=== PATIENT | male | born 1970 | race African-American/Black ===

== ENCOUNTER 2017-01-22 07:46 | Day surgery (SDC) | payer BC ==
[~2017-01-22 07:46] MED LIST: ACETAMINOPHEN 1,000 MG/100 ML BTL IV ONE
--- NOTE | 2017-01-22 13:10 | Operative Note ---
DATE OF SURGERY: 01/22/2017 Surgeon: Rick Harrell DO PREOPERATIVE DIAGNOSIS: Torn medial meniscus of the right knee. POSTOPERATIVE DIAGNOSES: 1. Torn medial meniscus of the right knee. 2. 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 OPERATION: 1. Arthroscopic partial medial meniscectomy, right knee. 2. Arthroscopic chondroplasty of the trochlea and medial femoral condyle, right knee. DESCRIPTION OF PROCEDURE: This 46-year-old male was taken to the operating room and placed in the supine position on the operating room table. A general anesthetic was administered and the right lower extremity was elevated. It was exsanguinated and the tourniquet inflated to 300 mmHg. Arthroscopic knee crespo applied. Right knee prepped with Hibiclens and draped in the usual sterile fashion. An inferolateral portal was established for the 4 mm arthroscope and initial evaluation of the joint demonstrated normal appearance of the suprapatellar pouch. The patella itself appeared to be normal; however, significant degenerative change of the trochlea was evident. Probing in this area revealed gross instability of the center of the trochlea and a lesion of about 1.5 to 2 cm in greatest dimension. This was a severe grade 3 lesion and utilizing the rotating shaver, we removed loose fragmented flaps of articular cartilage. It was probed, however, and found to be stable. The medial compartment was entered and a complex horizontal cleavage tear of the posterior horn of the medial meniscus was present. This tear extended from approximately the 11-o'clock position around to the 1:30 position with the apex being at about the 12:30 position. Utilizing the basket forceps and rotating shaver, we resected back to the apex of the tear and then tapered in each direction to restore stability. It was probed and confirmed to be stable. The remainder of the meniscus appeared nl. The patient did have loose flaps of articular cartilage at the lateral edge of the medial femoral condyle at the upswing to the tibial spine, and these flaps were resected to stabilize the articular cartilage on the medial femoral condyle. The intracondylar notch was examined and found to be normal. The lateral compartment was entered and the articular cartilage of the lateral compartment was normal as was the meniscus but multiple cartilaginous loose joint bodies were seen floating within the joint, and these were evacuated. The joint was then copiously irrigated and suctioned. All the areas reexamined. No additional findings were present. The joint was suctioned. The instruments were removed. The portals infiltrated with 0.25% Marcaine with epinephrine. Sterile dressings applied. The patient taken to the recovery room in satisfactory condition. GROSS PATHOLOGY: Grade 3 chondromalacia of the patella and early grade 2 chondromalacia of the medial femoral condyle was present as described above. In addition, a complex horizontal cleavage tear of the posterior horn of the medial meniscus was present. MTDD
[2017-01-22] MEDS ORDERED: METOCLOPRAMIDE 10 MG TABLET PO ONE (13:38)
[2017-01-22] MEDS ORDERED: MECLIZINE 25 MG TABLET PO ONE (13:38)
[2017-01-22] MEDS ORDERED: FAMOTIDINE 20MG TABLET PO ONE (13:38)
[2017-01-22] MEDS ORDERED: HYDROCODONE/APAP 7.5/325MG TABLET PO ONE (13:38)
[2017-01-22] MEDS ORDERED: BUPIVACAINE 0.25% W/EPI MPF 30ML VIAL IVP ONE (15:30)
[2017-01-22] MEDS ORDERED: LIDOCAINE 2% MDV (20MG/ML) 20ML VIAL IV ONE (15:36)
[2017-01-22] MEDS ORDERED: KETOROLAC 30 MG/ML VIAL IVP ONE (15:36)
[2017-01-22] MEDS ORDERED: MIDAZOLAM HCL 2MG/2ML VIAL IV ONE (15:36)
[2017-01-22] MEDS ORDERED: PROPOFOL 10 MG/ML VIAL IV ONE (15:36)
[2017-01-22] MEDS ORDERED: SEVOFLURANE 250 ML INH ONE (15:36)
== END 2017-01-22 10:45 | disposition home or self-care (01) ==
LOC: SUR 07:46
PROVIDERS: ATTEND Orthopaedic Surgery
DX: S83.241A Other tear of medial meniscus, current injury, right knee, initial encounter (principal); M94.261 Chondromalacia, right knee
CPT/HCPCS: 29881; 01400; J1885

== ENCOUNTER 2017-04-08 07:30 | Day surgery (SDC) | payer BC ==
[~2017-04-08 07:30] MED LIST changes: +CEFAZOLIN 2 Gram 2 GM/50 ML BAG IVPB ONE
[2017-04-08] MEDS ORDERED: HYDROMORPHONE HCL 2 MG/ML VIAL IV ONE ×2 (07:31)
[2017-04-08] MEDS ORDERED: SCOPOLAMINE 1 PATCH TDSY TD ONE (07:31)
[2017-04-08] MEDS ORDERED: ONDANSETRON HCL IV 4 MG/2 ML VIAL IVP ONE ×2 (07:31)
[2017-04-08] MEDS ORDERED: KETOROLAC 30 MG/ML VIAL IVP ONE (07:31)
[2017-04-08] MEDS ORDERED: ONDANSETRON 4 MG ODT TABLET SL ONE (07:31)
[2017-04-08] MEDS ORDERED: LIDOCAINE 2% MDV (20MG/ML) 20ML VIAL IV ONE (07:31)
[2017-04-08] MEDS ORDERED: LABETALOL HCL 5MG/ML, 20ML VIAL IVPB ONE (07:31)
[2017-04-08] MEDS ORDERED: PROPOFOL 10 MG/ML VIAL IV ONE (07:31)
[2017-04-08] MEDS ORDERED: SEVOFLURANE 250 ML INH ONE (07:31)
[2017-04-08 07:44] LABS: BASO % 0.5 % (0-6); EOS % 1.3 % (0-6); HEMATOCRIT 44.6 % (42.0-52.0); HEMOGLOBIN 15.1 gm/dl (14.0-18.0); LYMPH % 28.6 % (16-45); MEAN CORPUSCULAR HEMOGLOBIN 30.1 pg (27-33); MEAN CORPUSCULAR HGB CONC 33.9 g/dl (32-36); MEAN PLATELET VOLUME 8.7 fl (7.4-10.4); MONO % 9.6 % (0-9); PLATELET COUNT 221 K/uL (130-400); RED BLOOD COUNT 5.01 M/uL (4.40-5.70); RED CELL DISTRIBUTION WIDTH 13.4 % (11.5-14.5); WHITE BLOOD COUNT W/O DIFF 6.3 K/uL (4.2-12.2)
--- NOTE | 2017-04-09 12:20 | Operative Note ---
DATE OF SURGERY: 04/08/2017 Surgeon: Rick Harrell DO PREOPERATIVE DIAGNOSES: 1. Carpometacarpal osteoarthritis of the left thumb. 2. Carpal tunnel syndrome, left wrist. POSTOPERATIVE DIAGNOSES: 1. Carpometacarpal osteoarthritis of the left thumb. 2. Carpal tunnel syndrome, left wrist. OPERATION: 1. Hemiarthroplasty of the carpometacarpal joint of the left thumb using 3.5 loop magnification. 2. Decompression left median nerve at the wrist using 3.5 loop magnification. DESCRIPTION OF PROCEDURE: This 46-year-old male was taken to the operating room, placed in the supine position on the operating room table. A general anesthetic was administered and the left upper extremity was elevated. It was prepped with Hibiclens and draped in the usual sterile fashion. It was exsanguinated and the tourniquet inflated to 250 mmHg. An incision was made over the dorsal surface of the thumb and CMC joint. Dissection was carried down through the skin and subcutaneous tissue. The superficial radial nerve was protected. The superficial vessels also protected. An incision was then made in the periosteum and joint capsule dissecting down through the skin and subcutaneous tissue through the joint capsule once the soft tissue had been retracted. Subperiosteal elevations and capsulotomy performed to expose the CMC joint which was severely arthritic with essentially no articular cartilage at all, only a small amount seen at the periphery of each bone. Subsequently, once the soft tissue had been freed up about 270 degrees around the base of the thumb, we were able to mobilize this and guidewire placed up the shaft of the metacarpal for alignment. Subsequently, awl was used and we then were able to size the metacarpal and the trapezium. This was found to be a size medium. The appropriate cut was then made on the proximal end of the 1st metacarpal of the thumb. This then gave us the appropriate amount of space to address the trapezium. The osteophytes and soft tissue were thoroughly debrided. Spurs were present around the joint as well. We then placed a guidewire down through the center of the trapezium. The image intensifier was used to visualize this in the AP and lateral direction and it was felt to be in satisfactory position. Therefore, a size medium reamer was used to drill the socket into the trapezium. Once the appropriate depth had been accomplished, it was removed, the polishing reamer subsequently used. The wound copiously irrigated with lactated Ringer's solution. We then directed our attention to the metacarpal and the broaches were used, a size 20 was seated and felt to be the appropriate size in the AP and lateral radiographs. Subsequently, a trial was inserted and trial reduction was then accomplished. The thumb was taken through range of motion and felt to be stable. Trial components were then removed and the wound again copiously irrigated with lactated Ringer's solution. The final component was impacted into place. It was a size 20 median carpometacarpal implant from [facility]. It was the NuGrip. Once the final prosthesis was inserted, the image intensifier again used to confirm satisfactory position and alignment of the prosthesis. The capsule was subsequently repaired with 2-0 Vicryl and the subcutaneous tissue closed with 4-0 Vicryl and the skin with a running 4-0 nylon suture. We then directed our attention to the carpal canal and an incision was made in the palm from the level of the base of the web space of the thumb to the flexor crease of the wrist. Dissection was carried down through the skin and subcutaneous tissue. Hemostasis obtained with the electrocautery. The palmar fascia divided in line with the skin incision to expose the flexor retinaculum. This was then punctured and split to its proximal margin. With the contents of the carpal tunnel under direct vision, the transverse carpal ligament was transected along its ulnar border and the radial flap was raised to expose the entire median nerve under the transverse carpal ligament. The patient did have some mild hourglass deformity and mild hyperemia of the nerve and thickening of the tenosynovium but was otherwise unremarkable. The wound was irrigated with lactated Ringer's solution and subsequently the wound was closed with interrupted 6-0 nylon suture. Sterile dressings were applied with the plaster splint immobilization with the thumb metacarpal held with abduction and the wrist in slight dorsiflexion. The patient was then taken to the recovery room in satisfactory condition. GROSS PATHOLOGY: This patient had severe full-thickness articular cartilage loss at the CMC joint of the left thumb. In addition, carpal tunnel syndrome was present with evidence of compression of the nerve with mild hourglass deformity and hyperemia, thickening of the tenosynovium also identified. [facility]
== END 2017-04-08 14:00 | disposition home or self-care (01) ==
LOC: SUR 07:30
PROVIDERS: ATTEND Orthopaedic Surgery
DX: M18.12 Unilateral primary osteoarthritis of first carpometacarpal joint, left hand (principal); G56.02 Carpal tunnel syndrome, left upper limb
CPT/HCPCS: 25447; 64721; 01830; 85025; 76000; J1885; J2405; J1170; J0690; C1776